=== PATIENT | female | born 2000 | race American Indian/Alaskan Native ===

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

== ENCOUNTER 2022-01-08 15:32 | Emergency (ER) | payer BC, OTHER ==
[2022-01-08 17:47] VITALS: BP 111/69
[2022-01-08] MEDS ORDERED: CYCLOBENZAPRINE 10 MG TAB PO ONE (18:35)
[2022-01-08] MEDS ORDERED: KETOROLAC 10 MG TAB PO ONE (18:35)
--- NOTE | 2022-01-08 18:38 | Emergency Department Report ---
ED General Adult HPI - General Chief complaint: Pain General Stated complaint: RT SIDE RIB PAIN Time Seen by Provider: 01/08/22 17:38 Source: patient Mode of arrival: Ambulatory Limitations: No Limitations - History of Present Illness Initial comments: 21-year-old black female presents to the emergency department for evaluation of right rib area pain. She states that she started a new job a few days ago where she is having to do some lifting and since then she has been having right rib pain. She denies any trauma or injury but states that pain is worse when she moves around, takes a deep breath, or coughs. She denies chest pain, shortness of breath, nausea, vomiting, dizziness, and diaphoresis. -: days(s) (Right rib pain several) Location: chest (Right rib area) Radiation: non-radiation Severity scale (0 -10): 8 Quality: aching Consistency: intermittent Worsens with: movement Associated Symptoms: denies: chest pain, diaphoresis, fever/chills, nausea/vomiting, shortness of breath, syncope, weakness Treatments Prior to Arrival: none - Related Data Previous Rx's Medication Instructions Recorded Last Taken Type Cyclobenzaprine [Flexeril] 10 mg PO TID PRN #20 tablet 07/13/21 Unknown Rx Ibuprofen [Motrin 400 MG tab] 400 mg PO Q8H PRN #15 tablet 07/13/21 Unknown Rx Cyclobenzaprine [Flexeril] 10 mg PO BID PRN #10 tablet 08/10/21 Unknown Rx Menthol/Camphor [Penitas Barnard 1 applicatio TP QID PRN #1 tube 08/10/21 Unknown Rx Ointment] Naproxen 500 mg PO BID PRN #30 tablet 08/10/21 Unknown Rx Cyclobenzaprine [Flexeril] 10 mg PO TID PRN #21 tab 01/08/22 Unknown Rx Naproxen [Naprosyn] 500 mg PO BID #14 tab 01/08/22 Unknown Rx Allergies Allergy/AdvReac Type Severity Reaction Status Date / Time No Known Allergies Allergy Verified 01/08/22 17:48 ED Review of Systems ROS: Stated complaint: RT SIDE RIB PAIN Other details as noted in HPI Comment: All other systems reviewed and negative Constitutional: denies: chills, fever Respiratory: denies: cough, shortness of breath, SOB with exertion, SOB at rest Cardiovascular: denies: chest pain, palpitations, dyspnea on exertion Gastrointestinal: denies: abdominal pain, nausea, vomiting Genitourinary: denies: urgency, dysuria Musculoskeletal: denies: back pain Skin: denies: rash, lesions Neurological: denies: headache, weakness ED Past Medical Hx - Past Medical History Previous Medical History?: No - Surgical History Past Surgical History?: No - Social History Smoking Status: Never Smoker Substance Use Type: None - Medications Home Medications: Home Medications Medication Instructions Recorded Confirmed Last Taken Type Cyclobenzaprine [Flexeril] 10 mg PO TID PRN #20 tablet 07/13/21 01/08/22 Unknown Rx Ibuprofen [Motrin 400 MG tab] 400 mg PO Q8H PRN #15 tablet 07/13/21 01/08/22 Unknown Rx Cyclobenzaprine [Flexeril] 10 mg PO BID PRN #10 tablet 08/10/21 01/08/22 Unknown Rx Menthol/Camphor [Penitas Barnard 1 applicatio TP QID PRN #1 tube 08/10/21 01/08/22 Unknown Rx Ointment] Naproxen 500 mg PO BID PRN #30 tablet 08/10/21 01/08/22 Unknown Rx Cyclobenzaprine [Flexeril] 10 mg PO TID PRN #21 tab 01/08/22 Unknown Rx Naproxen [Naprosyn] 500 mg PO BID #14 tab 01/08/22 Unknown Rx ED Physical Exam - General Limitations: No Limitations General appearance: alert, in no apparent distress - Head Head exam: Present: atraumatic, normocephalic - Eye Eye exam: Present: normal appearance. Absent: conjunctival injection - Neck Neck exam: Present: normal inspection. Absent: tenderness, lymphadenopathy - Respiratory Respiratory exam: Present: normal lung sounds bilaterally, chest wall tenderness. Absent: respiratory distress, wheezes, rales, rhonchi, stridor - Cardiovascular Cardiovascular Exam: Present: regular rate, normal heart sounds - Expanded Cardiovascular Exam Expanded 1 - Tenderness - GI/Abdominal GI/Abdominal exam: Present: soft, normal bowel sounds. Absent: distended, tenderness, guarding, rebound, rigid - Extremities Exam Extremities exam: Present: normal inspection, normal capillary refill. Absent: pedal edema, joint swelling, calf tenderness - Back Exam Back exam: Present: normal inspection. Absent: CVA tenderness (R), CVA tenderness (L), vertebral tenderness - Neurological Exam Neurological exam: Present: alert, oriented X3 - Psychiatric Psychiatric exam: Present: normal affect, normal mood - Skin Skin exam: Present: warm, dry, intact, normal color ED Course Vital Signs 01/08/22 01/08/22 15:46 17:46 Temperature 98.6 F 97.9 F Pulse Rate 81 84 Respiratory 18 18 Rate Blood Pressure 113/66 Blood Pressure 111/69 [Left] O2 Sat by Pulse 99 99 Oximetry ED Medical Decision Making - Medical Decision Making 21-year-old black female presents to the emergency department for evaluation of right rib area pain. She states that she started a new job a few days ago where she is having to do some lifting and since then she has been having right rib pain. She denies any trauma or injury but states that pain is worse when she moves around, takes a deep breath, or coughs. She denies chest pain, shortness of breath, nausea, vomiting, dizziness, and diaphoresis. Exam consistent with musculoskeletal pain only. Patient will be treated with a one-time dose of Toradol and Flexeril in the emergency department and discharged home with naproxen and Flexeril to use as needed for pain. She is advised to take medication as prescribed and follow-up with primary care provider if no improvement or worsening symptoms. She verbalized understanding of and agreement with plan of care. Critical care attestation.: If time is entered above; I have spent that time in minutes in the direct care of this critically ill patient, excluding procedure time. ED Disposition Clinical Impression: Rib pain on right side Disposition: HOME / SELF CARE / HOMELESS Is pt being admited?: No Does the pt Need Aspirin: No Condition: Stable Instructions: Chest Wall Pain, [id number], Rib Contusion Additional Instructions: Take medications as prescribed. Follow-up with primary care provider if no improvement or worsening symptoms. Prescriptions: Cyclobenzaprine [Flexeril] 10 mg PO TID PRN #21 tab PRN Reason: Muscle Spasm Naproxen [Naprosyn] 500 mg PO BID #14 tab Referrals: KEILA DIAZ MD [Referring] - 3-5 Days Time of Disposition: 18:38
== END 2022-01-08 18:52 | disposition home or self-care (01) ==
LOC: ED 15:32
DX: R07.81 Pleurodynia (principal); Z79.899 Other long term (current) drug therapy
CPT/HCPCS: 99282